=== PATIENT | male | born 1995 | race Two or more races ===

== ENCOUNTER 2016-08-28 07:47 | Emergency (ER) | payer OTHER ==
[2016-08-28 08:05] VITALS: RESP 16
[2016-08-28] MEDS: ALBUTEROL/IPRATROPIUM 1 VIAL SOL INH ONE (08:05)
[2016-08-28] MEDS ORDERED: ALBUTEROL/IPRATROPIUM 1 VIAL SOL ONE (08:06)
[2016-08-28] MEDS ORDERED: SOLUMEDROL 125 MG/2 ML 125 MG/2 ML PDS ONE (08:06)
[2016-08-28] MEDS: SOLUMEDROL 125 MG/2 ML 125 MG/2 ML PDS IM ONE (08:15)
[2016-08-28 08:28] VITALS: BP 160/90; PULSE 58; TEMP 96.3; O2SAT 95
== END 2016-08-28 08:35 | disposition home or self-care (01) | DRG 203 ==
LOC: ED 07:47
DX: J45.901 Unspecified asthma with (acute) exacerbation (principal)
CPT/HCPCS: 96372; 99283; J2930; J7620